=== PATIENT | female | born 1945 | race African-American/Black ===

== ENCOUNTER → 2016-10-14 | Day surgery (SDC) | payer MEDICARE, MEDICAID ==
[2016-10-14] VITALS (10 sets, daily range): BP systolic 142–155; BP diastolic 64–90
[~2016-10-14] VITALS: Ht 144.8 cm; Wt 77.1 kg
[~2016-10-14] MED LIST: ASPIR 8181 MG ORAL; ATENOLOL50 MG ORAL; Atropine Sulfate 3.5gm Oint ONE; BENAZEPRIL HCL40 MG ORAL; BEPREVE10 ML BOTH EYES; BSS 15ml BTL ONE; BSS 500ml btl ONE; Bupivacaine 0.75% 30ml vial INJ ONE; Cyclopentolate 1% Opth Sol ONE; Dexamethasone 4mg/ml vial ONE; EPINEPHrine 1mg/1ml Amp ONE; Flurbiprofen 0.03% Opth Sol 2.5ml ONE; Gatifloxacin Opth Solution 0.5% ONE; Indocyanine Green 25mg Inj INJ ONE; Kenalog-10 5ml Inj ONE; Kenalog-40 1ml Vial ONE; LEVOCETIRIZINE D5 MG ORAL; LR 1000ml 1,000 ML IVLG SCH; LR 1000ml ONE; Lidocaine 1% MPF 10mg/ml 5ml ONE; Lidocaine 2% MPF 5ml Vial INJ ONE; Maxitrol Opth Oint 3.5gm ONE; Midazolam 2mg/2ml Inj ONE; NAPROXEN250 M1 PO; NIFEDIPINE ER60 M3 ORAL; NORVASC2.5 MG ORAL; NS Irrig 1000ml ONE; Norco 5mg/325mg tab ORAL PRN; Phenylephrine 2.5% Op Soln ONE; Pred Forte 1% Opth Susp 1ml RIGHT EYE ONE; Propofol 10mg/ml 20ml IV ONE; Sodium Hyaluronate 10 mg/ml 0.85ml ONE; Sterile Water Irrig 1000ml IRRIG ONE; Tetracaine 0.5% Opth Soln ONE; XALATAN2.5 ML BOTH EYES; bp med
[2016-10-14] MEDS: Cyclopentolate 1% Opth Sol RIGHT EYE SCH ×3 (05:43→06:00)
[2016-10-14] MEDS: Gatifloxacin Opth Solution 0.5% RIGHT EYE SCH ×3 (05:43→06:00)
[2016-10-14] MEDS: Flurbiprofen 0.03% Opth Sol 2.5ml RIGHT EYE SCH ×3 (05:43→06:00)
[2016-10-14] MEDS: Phenylephrine 2.5% Op Soln RIGHT EYE SCH ×3 (05:43→06:00)
[2016-10-14 06:17] LABS: BASOPHILS % (AUTO) 0.7 % (0.0-2.0); EOSINOPHILS % (AUTO) 1.1 % (0.0-3.0); LYMPHOCYTES % (AUTO) 25.7 % (20.0-45.0); MEAN CORPUSCULAR HEMOGLOBIN 33.5 PG (27.0-31.0); MEAN CORPUSCULAR HGB CONC 31.7 G/DL (32.0-36.0); MEAN CORPUSCULAR VOLUME 106 FL (80-99); MEAN PLATELET VOLUME 5.8 FL (6.5-10.1); MONOCYTES % (AUTO) 8.6 % (1.0-10.0); PLATELET COUNT 308 K/UL (150-450); RED BLOOD COUNT 3.42 M/UL (4.20-5.40); RED CELL DISTRIBUTION WIDTH 13.2 % (11.6-14.8); WHITE BLOOD COUNT 7.8 K/UL (4.8-10.8)
--- NOTE | 2016-10-14 06:34 | Pre-Procedure Note/Attestation ---
Pre-Procedure Note/Attestation Complete Prior to Procedure Planned Procedure: right Procedure Narrative: PPV, ICG assisted membrane peel, gas-fluid exchange R eye Indications for Procedure Pre-Operative Diagnosis: Stage 4 macular hole R eye Attestation I attest that I discussed the nature of the procedure; its benefits; risks and complications; and alternatives (and the risks and benefits of such alternatives ), prior to the procedure, with the patient (or the patient's legal outside medical sales representative). I attest that, if there was a reasonable possibility of needing a blood transfusion, the patient (or the patient's legal outside medical sales representative) was given the [facility] standardized written summary, pursuant to the [place] Blood Safety Act ([place] Health and Safety Code # 1645, as amended). I attest that I re-evaluated the patient just prior to the surgery and that there has been no change in the patient's H&P, except as documented below: PARAM RODAS Oct 14, 2016 06:34
[2016-10-14 06:41] LABS: ANION GAP 17 (5-15); CALCIUM 9.1 mg/dL (8.6-10.2); CARBON DIOXIDE 21 mEQ/L (20-30); CHLORIDE 108 mEQ/L (98-107); CREATININE 0.9 mg/dL (0.5-0.9); HEMOLYSIS 46; POTASSIUM 4.3 mEQ/L (3.4-4.9); SODIUM 146 mEQ/L (135-145)
--- NOTE | 2016-10-14 08:32 | Anethesia Preoperative Eval ---
Anesthesia Pre-op PMH/ROS General Date of Evaluation: Oct 14, 2016 Time of Evaluation: 07:30 Anesthesiologist: Marianna ASA Score: ASA 2 Mallampati Score Class I : Soft palate, uvula, fauces, pillars visible Class II: Soft palate, uvula, fauces visible Class III: Soft palate, base of uvula visible Class IV: Only hard plate visible Mallampati Classification: Class II Surgeon: Travis Diagnosis: Macular hole right eye Surgical Procedure: Posterior vitrectomy Anesthesia History: none Family History: no anesthesia problems Allergies: Coded Allergies: No Known Allergies (Unverified , 10/13/16) Medications: see eMAR Past Medical History Cardiovascular: Reports: HTN Pulmonary: Denies: COPD, LUISA, asthma, other Gastrointestinal/Genitourinary: Denies: CRI, ESRD, GERD, other Neurologic/Psychiatric: Denies: CVA, TIA, dementia, depression/anxiety, other Endocrine: Denies: DM, hypothyroidism, other, steroids HEENT: Reports: cataract (R) Hematology/Immune: Denies: DVT, anemia, bleeding disorder, other Musculoskeletal/Integumentary: Denies: DDD, DJD, OA, RA, edema, other PMH Narrative: HTN PSxH Narrative: Cataract Anesthesia Pre-op Phys. Exam Physician Exam Last Vital Signs Date Time Temp Pulse Resp B/P Pulse Ox O2 Delivery O2 Flow Rate FiO2 10/14/16 05:57 98.1 74 18 151/67 97 Room Air Constitutional: NAD Neurologic: CN 2-12 intact Cardiovascular: RRR Respiratory: CTA Gastrointestinal: S/NT/ND Airway Exam Mallampati Score: Class II MO: full ROM: full Teeth: missing Dentures: no lower, no upper Anesthesia Pre-op A/P Labs Hematology Test 10/14/16 06:00 White Blood Count 7.8 K/UL (4.8-10.8) Red Blood Count 3.42 M/UL (4.20-5.40) L Hemoglobin 11.5 G/DL (12.0-16.0) L Hematocrit 36.1 % (37.0-47.0) L Mean Corpuscular Volume 106 FL (80-99) H Mean Corpuscular Hemoglobin 33.5 PG (27.0-31.0) H Mean Corpuscular Hemoglobin Concent 31.7 G/DL (32.0-36.0) L Red Cell Distribution Width 13.2 % (11.6-14.8) Platelet Count 308 K/UL (150-450) Mean Platelet Volume 5.8 FL (6.5-10.1) L Neutrophils (%) (Auto) 64.0 % (45.0-75.0) Lymphocytes (%) (Auto) 25.7 % (20.0-45.0) Monocytes (%) (Auto) 8.6 % (1.0-10.0) Eosinophils (%) (Auto) 1.1 % (0.0-3.0) Basophils (%) (Auto) 0.7 % (0.0-2.0) Chemistry Test 10/14/16 06:00 Sodium Level 146 mEQ/L (135-145) H Potassium Level 4.3 mEQ/L (3.4-4.9) Chloride Level 108 mEQ/L (98-107) H Carbon Dioxide Level 21 mEQ/L (20-30) Anion Gap 17 (5-15) H Blood Urea Nitrogen 14 mg/dL (7-23) Creatinine 0.9 mg/dL (0.5-0.9) Estimat Glomerular Filtration Rate mL/min (>60) Glucose Level 75 mg/dL (74-106) Calcium Level 9.1 mg/dL (8.6-10.2) SOTO DENIS D.O. Oct 14, 2016 08:32
--- NOTE | 2016-10-14 08:47 | Pre-op HX & Phy Repo 2 SIG ---
DATE OF ADMISSION: 10/14/2016 PRESURGICAL INTERNAL MEDICINE HISTORY AND PHYSICAL REASON FOR EVALUATION: I was asked by Dr. Kevyn Robles to see this 71-year-old female, who is going for elective surgery on the right eye. The patient has a macular hole stage IV right eye. Please see full ophthalmology History and Physical by Dr. Kevyn Robles. The patient was examined and chart was reviewed. The patient is a 71-year-old female, has a history of hypertension, history of degenerative joint disease of knee and recent weight loss. Denies history of stroke. Denies diabetes. Denies history of chest pain, palpitation or heart attack. No history of stomach problem, acid reflux, ulcer. Denies history of liver problem, hepatitis or jaundice. No history of thyroid problem. No anemia. No history of renal failure. PAST SURGICAL HISTORY: Cataract both eyes in the . ALLERGIES: Not known. PRESENT MEDICATIONS: The patient remember medication for blood pressure, nifedipine, aspirin and [place] for pain. SOCIAL HISTORY: The patient was smoker for approximately 20 years and stopped in 1989. She continue to drink alcohol. No street drugs. FAMILY HISTORY: Mother has hypertension. PHYSICAL EXAMINATION: GENERAL: Alert, awake, well-developed, well-nourished female, in her 70s. Daughter at bedside. VITAL SIGNS: Blood pressure 151/69, temperature 98.1 degrees, pulse 74 and regular, respirations 18, and O2 saturation 97% on room air. SKIN: Warm and dry. No rashes. LYMPHATICS: Lymph nodes not enlarged. HEENT: Head, normocephalic. Ears, clear. No discharge. No hearing impairment. Eyes, full description per Dr. Kevyn Robles. Nose, clear. No discharge. Mouth, dry and clear. No dentures. NECK: Supple. No jugular vein distention. Carotids are 2+. Trachea midline. CHEST: No deformity or asymmetry. LUNGS: Clear to auscultation and percussion. No rales or rhonchi. ABDOMEN: Soft. No palpable mass. No rebound. EXTREMITIES: Degenerative joint disease of knee. No edema. No varicose vein. No calf tenderness. GENITOURINARY TRACT: No dysuria. No CVA tenderness. NEUROLOGIC: No tremor. No nystagmus. PSYCHIATRY: Fully alert and oriented to time and place. LABORATORY AND DIAGNOSTIC DATA: ECG, sinus rhythm at 64 per minute, cannot rule out anterior infarct. The patient undetermined. The patient did not eat or drink from last night. Laboratory work pending. IMPRESSION: 1. Macular hole, stage IV on the right eye. 2. Hypertension, controlled. 3. Degenerative joint disease of knee. 4. Anterior myocardial infarction by EKG. 5. Recent weight loss. PLAN: Pars plana vitrectomy 23 G, membrane peel right eye per Dr. Kevyn Robles. CONCLUSION: The patient 71-year-old female with history of hypertension. Vital signs stable. The patient did not eat or drink from last night. ECG show possible anterior DC, normal sinus rhythm. The patient denies symptomatic event, the patient's weight loss recently and need to be evaluated by primary physician. The patient's condition optimized for surgery. Thank you very much, Dr. Robles, for privilege to participate in presurgical care of this interesting patient. Elieser Shields M.D. DR: Dea JOB#: [id number] CC:
--- NOTE | 2016-10-14 08:58 | Immediate Post-Op Evaluation ---
Immediate Post-Op Evalulation Immediate Post-Op Evalulation Procedure: Vitrectomy, gas exchange, membrane peeling Date of Evaluation: Oct 14, 2016 Time of Evaluation: 08:58 IV Fluids: 500ml Blood Products: none Estimated Blood Loss: none Urinary Output: due to void Blood Pressure Systolic: 150 Blood Pressure Diastolic: 70 Pulse Rate: 86 Respiratory Rate: 16 O2 Sat by Pulse Oximetry: 100 Temperature (Fahrenheit): 99.7 Pain Score (1-10): 0 Nausea: No Vomiting: No Complications none Patient Status: awake, reacts Hydration Status: adequate Drug: n/a SOTO DENIS D.O. Oct 14, 2016 08:58
--- NOTE | 2016-10-14 09:08 | Brief Operative Note ---
Immediate Post Operative Note Operative Note Chief Complaint: Blurred vision R eye Pre-op Diagnosis: Stage 4 macular hole R eye Procedure: PPV, ICG assisted membrane peel, endolaser 411 spots, gas-fluid exchange 24% SF6 L eye Post-op Diagnosis: same as pre-op plus - Multiple round holes superotemporally Surgeon: cordelia Crop Farmers: lisandra Anesthesia: MAC Specimen: none Complications: none Condition: stable Estimated Blood Loss: none Drains: none Implant(s) used?: No PARAM RODAS Oct 14, 2016 09:08
--- NOTE | 2016-10-14 09:10 | 48 Hour Post Anesthesia Eval ---
Post Anesthesia Evaluation Procedure: Vitrectomy, gas exchange, membrane peeling Date of Evaluation: Oct 14, 2016 Time of Evaluation: 09:09 Blood Pressure Systolic: 155 0: 70 Pulse Rate: 16 Respiratory Rate: 16 Temperature (Fahrenheit): 99.7 O2 Sat by Pulse Oximetry: 100 Nausea: No Vomiting: No Pain Intensity: 0 Hydration Status: adequate Cardiopulmonary Status: stable Mental Status/LOC: patient returned to baseline Follow-up Care/Observations: as per surgeon Post-Anesthesia Complications: none Follow-up care needed: N/A SOTO DENIS D.O. Oct 14, 2016 09:10
--- NOTE | 2016-10-14 10:08 | Operative Note - Dictated ---
DATE OF OPERATION: 10/14/2016 PREOPERATIVE DIAGNOSIS: Stage IV macular hole, right eye. POSTOPERATIVE DIAGNOSIS: Stage IV macular hole, right eye with multiple peripheral round hole. SURGEON: Kevyn Robles M.D. [employer] ARTILLERY CREWMEMBER: Bruce Hernández M.D. PROCEDURES PERFORMED: 1. Pars plana vitrectomy. 2. ICG assisted membrane peel. 3. Endolaser. 4. Gas fluid exchange, right eye. ANESTHESIOLOGIST: Dr. Cabral. ANESTHESIA: Local with sedation. JUSTIFICATION FOR SURGERY: This is a 71-year-old lady developed poor central vision in the right eye and was found to have a stage IV hole. BRIEF NOTE: The patient brought to the operative room, placed on operating room table in supine position. After a time-out was performed and agreed upon by the staff and initial monitoring secured by Dr. Cabral. Retrobulbar and Van Lint blocks given in standard way. The blocks taken effect, she was prepped and draped in normal manner. The lid speculum was inserted into the right eye. Using a 23-gauge trocar system, cannulas were placed all except infranasal quadrant. Infusion secured inferotemporally. Vitrectomy was begun posterior to the lens implant. The capsulotomy was slightly enlarged and vitreous adhesions removed from capsule and anterior hilar. Vitrectomy was carried further posteriorly with the posterior hyaloid was noted to be elevated. This was removed. Vitrectomy was carried further peripherally leaving a small vitreous skirt. ICG, diluted and D5 was placed over the posterior segment avoiding the central macular hole. A total of roughly 2 drops were placed and allowed to stain in the hilum. Using intra-ocular forceps, the hilum was engaged superior and nasal to the macula. The forceps were used to gently peel an area 2.5 disc diameters in size freeing adhesions to the central hole. No problems were encountered. Slow depression was done and an area of pigmentation and at least 2 to 3 round holes was noted superotemporally. The endolaser was brought into the eye and a power of 0.3 mitchell duration 0.2 seconds, total for 411 lesions were applied to completely surround this area treating the visible holes. An air-fluid exchange was then performed followed by a gas exchange to 24% SF6. The eye was left normotensive as the cannulas were removed. The shelved nature of the incisions were noted to be self-sealing. Subconjunctival Decadron and gentamicin were injected inferiorly and Maxitrol and atropine ointments were instilled. The eye was patched and shielded. The patient taken to recovery in excellent condition. No complications were encountered. Kevyn Robles M.D. DR: Ty JOB#: [id number] CC: Kevyn Robles M.D.; Fax#: [phone] Hernández M.D.; On staff at [facility], the assitant surgeon CHRISTY
--- NOTE | 2016-10-19 12:41 | Cardiology Report ---
APPROVED REPORT EKG Measurement Heart [id number] IN [id number] Normal sinus rhythm Cannot rule out Anterior infarct, age undetermined Abnormal ECG
--- NOTE | 2016-11-04 08:48 | Pre-op HX & Phy Repo 2 SIG ---
DATE OF SURGERY: 10/14/2016 PREOPERATIVE DIAGNOSIS: Stage IV macular hole, right eye. BRIEF NOTE: This is a first [place] admission for the patient, who is a very nice 71-year-old lady, who complained of blurred vision in the right eye for at least a month. On examination, she was found to have a stage IV macular hole. Her past ocular history is remarkable for cataract surgery done in both eyes in 1998. These were successful. PAST MEDICAL HISTORY: Remarkable for arthritis and high blood pressure. MEDICATIONS: She is on atenolol, benazepril, levocetirizine, and Naprosyn as well as aspirin 325 mg daily. ALLERGIES: She has no known allergies. SOCIAL HISTORY: She does not smoke or drink. PHYSICAL EXAMINATION: EYE: Best vision at the time of admission was 20, was counting fingers at 6 feet in the right eye, 20/50- in the left with pressures of 14. The anterior segments have posterior chamber lenses in either eye. Funduscopic examination revealed a stage IV macular hole in the right eye with mild pigmentary mottling. The left eye showed mild pigmentary changes, but no hole. There were vitreous floaters in either eye. The diagnosis was confirmed with fluorescein angiography and a full CT study, which revealed no evidence of neovascular activity. ASSESSMENT: Stage IV macular hole, right eye. PLAN: The plan is to perform a pars plana vitrectomy with ICG assisted membrane peel, possible endolaser and the gas fluid exchange on the right eye. The risks and benefits of surgery was gone over the patient with potential infection, hemorrhage, glaucoma, and remote possibility of loss of the eye. The risk of anesthesia was discussed. The patient understands and consents to surgery, which will be performed on tomorrow morning. Kevyn Robles M.D. DR: CRIS JOB#: [id number] CC:
== END | disposition home or self-care (01) ==
LOC: SUR 05:18
DX: H35.341 Macular cyst, hole, or pseudohole, right eye (principal); I10 Essential (primary) hypertension; M17.0 Bilateral primary osteoarthritis of knee; R63.4 Abnormal weight loss; I25.2 Old myocardial infarction; Z87.891 Personal history of nicotine dependence; Z79.82 Long term (current) use of aspirin; Z79.891 Long term (current) use of opiate analgesic
CPT/HCPCS: 36415; 67042; 80048; 85025; 93005; J0171; J1100; J2250; J2704; J3490; J7120; 94003; 94150

== ENCOUNTER → 2016-12-23 | Day surgery (SDC) | payer MEDICARE, MEDICAID ==
--- NOTE | 2016-12-18 15:58 | Pre-op HX & Phy Repo 2 SIG ---
DATE OF ADMISSION: 12/23/2016 DATE OF SURGERY: 12/23/2016. PREOPERATIVE DIAGNOSIS: Recurrent macular hole, right eye. BRIEF NOTE: This is the second [place] admission for this patient, who is a very nice 71-year-old lady who developed a macular hole in the right eye. PAST OCULAR HISTORY: Remarkable for surgery on the same macular hole two and half months ago. She initially showed closure, but the hole reopened. She is admitted for a second procedure with possible ILM flap. PAST MEDICAL HISTORY: Remarkable for arthritis and hypertension. MEDICATIONS: She is currently on ophthalmic solution as well as latanoprost. Oral medications include aspirin, Voltaren, atenolol, benazepril, and levocetirizine. ALLERGIES: She has no allergies. SOCIAL HISTORY: She does not smoke or drink. PHYSICAL EXAMINATION: EYES: Best vision time of the visit was counting fingers at 4 feet in the right eye and 20/40 in the left with pressures of 28 and 22. The anterior segments showed posterior chamber lenses in either eye. She was otherwise quiet. Fundus exam of the right eye showed an open full thickness macular hole, stage IV. There was a closed peripheral retinal tear at the 2 o'clock position. The left fundus showed retinal pigment epithelial mottling, but no evidence of a hole. General physical examination will be updated by Dr. Shields. ASSESSMENT: Recurrent macular hole, right eye. PLAN: The plan is to perform a pars plana vitrectomy with removal of any residual internal limiting membrane, possible internal limiting membrane flap formation with gas fluid exchange. The risks and benefits of surgery have been gone over with the patient including the potential for detachment, failure of the hole to close on the second attempt, and remote possibility of loss of the eye. The risk of anesthesia was discussed. The patient understands and consents with the surgery to be performed on Wednesday. Kevyn Robles M.D. DR: TONYA JOB#: [id number] CC:
[2016-12-23] VITALS (9 sets, daily range): BP systolic 139–170; BP diastolic 65–80
[~2016-12-23] VITALS: Ht 142.2 cm; Wt 53.5 kg
[~2016-12-23] MED LIST changes: +AVASTIN IVITRE ONE; -Atropine Sulfate 3.5gm Oint ONE; +LR 1000ml 1,000 ML IV SCH; -LR 1000ml ONE; -Lidocaine 1% MPF 10mg/ml 5ml ONE; +Povidone-Iodine 5% opth solution ONE; -Pred Forte 1% Opth Susp 1ml RIGHT EYE ONE; +Pred Forte 1% Opth Susp 1ml RIGHT EYE SCH; +fentaNYL 100 mcg/2 mL IV PRN
[2016-12-23] MEDS: Cyclopentolate 1% Opth Sol RIGHT EYE SCH ×3 (06:26→06:46)
[2016-12-23] MEDS: Flurbiprofen 0.03% Opth Sol 2.5ml RIGHT EYE SCH ×3 (06:26→06:47)
[2016-12-23] MEDS: Phenylephrine 2.5% Op Soln RIGHT EYE SCH ×3 (06:26→06:47)
[2016-12-23] MEDS: Gatifloxacin Opth Solution 0.5% RIGHT EYE SCH ×3 (06:27→06:48)
[2016-12-23 06:51] LABS: BASOPHILS % (AUTO) 0.6 % (0.0-2.0); LYMPHOCYTES % (AUTO) 23.3 % (20.0-45.0); MEAN CORPUSCULAR HEMOGLOBIN 33.9 PG (27.0-31.0); MEAN CORPUSCULAR HGB CONC 33.2 G/DL (32.0-36.0); MEAN CORPUSCULAR VOLUME 102 FL (80-99); MEAN PLATELET VOLUME 6.6 FL (6.5-10.1); MONOCYTES % (AUTO) 7.7 % (1.0-10.0); NEUTROPHILS % (AUTO) 67.4 % (45.0-75.0); PLATELET COUNT 323 K/UL (150-450); RED BLOOD COUNT 3.67 M/UL (4.20-5.40); RED CELL DISTRIBUTION WIDTH 13.8 % (11.6-14.8); WHITE BLOOD COUNT 7.9 K/UL (4.8-10.8)
[2016-12-23 06:54] LABS: ANION GAP 16 (5-15); CALCIUM 9.2 mg/dL (8.6-10.2); CARBON DIOXIDE 27 mEQ/L (20-30); CHLORIDE 97 mEQ/L (98-107); CREATININE 0.9 mg/dL (0.5-0.9); HEMOLYSIS 171; POTASSIUM 4.3 mEQ/L (3.4-4.9); SODIUM 140 mEQ/L (135-145)
--- NOTE | 2016-12-23 07:31 | Pre-Procedure Note/Attestation ---
Pre-Procedure Note/Attestation Complete Prior to Procedure Planned Procedure: right Procedure Narrative: PPV, ICG assisted membrane peel, gas fluid exchange R eye Indications for Procedure Pre-Operative Diagnosis: Recurrent macular hole R eye Attestation I attest that I discussed the nature of the procedure; its benefits; risks and complications; and alternatives (and the risks and benefits of such alternatives ), prior to the procedure, with the patient (or the patient's legal herbicide service sales representative). I attest that, if there was a reasonable possibility of needing a blood transfusion, the patient (or the patient's legal herbicide service sales representative) was given the [facility] Services standardized written summary, pursuant to the [place] Blood Safety Act ([place] Health and Safety Code # 1645, as amended). I attest that I re-evaluated the patient just prior to the surgery and that there has been no change in the patient's H&P, except as documented below: PARAM RODAS Dec 23, 2016 07:31
--- NOTE | 2016-12-23 08:13 | Anethesia Preoperative Eval ---
Anesthesia Pre-op PMH/ROS General Date of Evaluation: Dec 23, 2016 Time of Evaluation: 07:30 Anesthesiologist: Matias ASA Score: ASA 3 Mallampati Score Class I : Soft palate, uvula, fauces, pillars visible Class II: Soft palate, uvula, fauces visible Class III: Soft palate, base of uvula visible Class IV: Only hard plate visible Mallampati Classification: Class II Surgeon: Travis Diagnosis: Macular hole Surgical Procedure: Vitrectomy, membrane peeling Family History: no anesthesia problems Allergies: Coded Allergies: No Known Allergies (Unverified , 10/13/16) Past Medical History Cardiovascular: Reports: HTN, Denies: CAD, VT, arrhythmia, other, valve dz Pulmonary: Denies: COPD, LUISA, asthma, other Gastrointestinal/Genitourinary: Denies: CRI, ESRD, GERD, other Neurologic/Psychiatric: Reports: CVA, Denies: TIA, dementia, depression/anxiety, other Endocrine: Denies: DM, hypothyroidism, other, steroids HEENT: Denies: [place] (L), [place] (R), cataract (L), cataract (R), glaucoma, other Hematology/Immune: Denies: DVT, anemia, bleeding disorder, other Musculoskeletal/Integumentary: Denies: DDD, DJD, OA, RA, edema, other PMH Narrative: HTN, CVA without residual PSxH Narrative: Vitrectomy right eye Anesthesia Pre-op Phys. Exam Physician Exam Last Vital Signs Date Time Temp Pulse Resp B/P Pulse Ox O2 Delivery O2 Flow Rate FiO2 12/23/16 06:39 98.2 78 20 146/74 100 Room Air Constitutional: NAD Neurologic: CN 2-12 intact Cardiovascular: RRR, no M/R/G Respiratory: CTA Gastrointestinal: S/NT/ND Airway Exam Mallampati Score: Class II MO: full ROM: full Teeth: intact Anesthesia Pre-op A/P Labs Hematology Test 12/23/16 06:30 White Blood Count 7.9 K/UL (4.8-10.8) Red Blood Count 3.67 M/UL (4.20-5.40) L Hemoglobin 12.4 G/DL (12.0-16.0) Hematocrit 37.5 % (37.0-47.0) Mean Corpuscular Volume 102 FL (80-99) H Mean Corpuscular Hemoglobin 33.9 PG (27.0-31.0) H Mean Corpuscular Hemoglobin Concent 33.2 G/DL (32.0-36.0) Red Cell Distribution Width 13.8 % (11.6-14.8) Platelet Count 323 K/UL (150-450) Mean Platelet Volume 6.6 FL (6.5-10.1) Neutrophils (%) (Auto) 67.4 % (45.0-75.0) Lymphocytes (%) (Auto) 23.3 % (20.0-45.0) Monocytes (%) (Auto) 7.7 % (1.0-10.0) Eosinophils (%) (Auto) 1.0 % (0.0-3.0) Basophils (%) (Auto) 0.6 % (0.0-2.0) Chemistry Test 12/23/16 06:30 Sodium Level 140 mEQ/L (135-145) Potassium Level 4.3 mEQ/L (3.4-4.9) Chloride Level 97 mEQ/L (98-107) L Carbon Dioxide Level 27 mEQ/L (20-30) Anion Gap 16 (5-15) H Blood Urea Nitrogen 11 mg/dL (7-23) Creatinine 0.9 mg/dL (0.5-0.9) Estimat Glomerular Filtration Rate mL/min (>60) Glucose Level 96 mg/dL (74-106) Calcium Level 9.2 mg/dL (8.6-10.2) Studies Pre-op Studies: EKG - SR, NSTW changes Risk Assessment & Plan Assessment: Macular hole Plan: MAC Status Change Before Surgery: No Pre-Antibiotics Drug: None LUCIO TODD M.D. Dec 23, 2016 08:13
--- NOTE | 2016-12-23 08:14 | Immediate Post-Op Evaluation ---
Immediate Post-Op Evalulation Immediate Post-Op Evalulation Procedure: Vitrectomy, membrane peeling Date of Evaluation: Dec 23, 2016 Time of Evaluation: 08:38 IV Fluids: 400 Blood Pressure Systolic: 142 Blood Pressure Diastolic: 79 Pulse Rate: 79 Respiratory Rate: 20 O2 Sat by Pulse Oximetry: 100 Temperature (Fahrenheit): 98.1 Pain Score (1-10): 0 Nausea: No Vomiting: No Complications No complication Patient Status: awake, patent, none Hydration Status: adequate Drug: None LUCIO TODD M.D. Dec 23, 2016 08:14
--- NOTE | 2016-12-23 08:34 | Brief Operative Note ---
Immediate Post Operative Note Operative Note Chief Complaint: Blurred central vision R eye Pre-op Diagnosis: Recurrent macular hole R eye Procedure: PPV, membrane peel with ICG, gas-fluid exchange (15% C3F8) OD Post-op Diagnosis: same as pre-op Surgeon: cordelia Science Consultant: lisandra Anesthesiologist: Juan Anesthesia: MAC Specimen: none Complications: none Condition: stable Estimated Blood Loss: none Drains: none Implant(s) used?: No PARAM RODAS Dec 23, 2016 08:34
--- NOTE | 2016-12-23 08:37 | 48 Hour Post Anesthesia Eval ---
Post Anesthesia Evaluation Procedure: Vitrectomy, membrane peeling Date of Evaluation: Dec 23, 2016 Time of Evaluation: 09:15 Blood Pressure Systolic: 151 0: 78 Pulse Rate: 80 Respiratory Rate: 19 O2 Sat by Pulse Oximetry: 100 Airway: patent Nausea: No Vomiting: No Pain Intensity: 0 Hydration Status: adequate Cardiopulmonary Status: Stable Mental Status/LOC: patient returned to baseline Follow-up Care/Observations: As per surgery Post-Anesthesia Complications: No anesthetic complication Follow-up care needed: N/A LUCIO TODD M.D. Dec 23, 2016 08:37
--- NOTE | 2016-12-23 17:00 | Operative Note - Dictated ---
DATE OF OPERATION: 12/23/2016 PREOPERATIVE DIAGNOSIS: Recurrent macular hole, right eye. POSTOPERATIVE DIAGNOSIS: Recurrent macular hole, right eye. PROCEDURES: 1. Pars plana vitrectomy. 2. ICG-assisted membrane peel. 3. Gas fluid exchange, right eye. SURGEON: Kevyn Robles M.D. REGISTERED MEDICAL TRANSCRIPTIONIST: Bruce Hernández M.D. ANESTHESIOLOGIST: Tello Salcedo M.D. ANESTHESIA: Local sedation. JUSTIFICATION FOR SURGERY: This is a 71-year-old female, who underwent macular hole surgery 2 months ago, noted either failure to close or recurrence of the opening. She was admitted for repeat vitrectomy and gas. BRIEF NOTE: The patient was brought to the operative room, placed on operating room table in supine position. After time-out was performed and agreed upon by the staff, initial monitoring was secured by Dr. Paul's. Retrobulbar and Van Lint blocks were given in the standard way. When the blocks had taken effect, she was prepped and draped in normal manner. A lid speculum was inserted into the right eye. Using a 23-gauge trocar system, cannulae were placed in all except infranasal quadrant. Infusion secured inferotemporally. Vitrectomy was begun posterior to the lens. A minimal peripheral vitrectomy was completed leaving the vitreous skirt smaller. The bulk of the vitreous had been previously removed. A posterior viewing lens was inserted and the hole was noted. A single drop of ICG dye was applied and gently evacuated from the eye. The gentle staining showed a fairly complete 3 disc diameter opening around the hole including ILM. There were possible faint areas of preretinal membrane present and using a [employer] epitaxial reactor technician, the hole was brushed centrally decreasing its size by about 50% and loosening in the adhesions. At this juncture, an air-fluid exchange was performed followed by gas-gas exchange of 15% C3F8. The cannulae were removed from the eye and the wound was noted to be self-sealing. Subconjunctival Decadron and gentamicin were injected inferiorly and Maxitrol and atropine ointments were instilled. The eye was patched and shielded. The patient taken to recovery in excellent condition. There were no complications. Kevyn Robles M.D. DR: Jaciel JOB#: [id number] CC: Juan Alberto Sharma M.D. ; Fax#: [phone]
--- NOTE | 2016-12-23 17:18 | Pre-op HX & Phy Repo 2 SIG ---
DATE OF ADMISSION: 12/23/2016 NOTE: POOR AUDIO QUALITY PRESURGICAL INTERNAL MEDICINE HISTORY AND PHYSICAL: REASON FOR EVALUATION: I was asked by Dr. Kevyn Robles to see this 70-year-old female, who is going for elective surgery in the right eye. The patient was evaluated. Chart was reviewed. The patient has a macular hole, right eye. Please see full ophthalmology history and physical by Dr. Kevyn Robles. Part of information obtained from the daughter at the bedside. 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 No paralysis. Denies history of diabetes. No history of chest pain, palpitation, or shortness of breath. No arrhythmia. Denies history of GI problem, bleeding, or constipation. No liver problem. Denies history of thyroid problem. No history of renal failure. No respiratory problem. The patient does have a history of degenerative joint disease of the knee. She ambulates with walker, lives alone. PAST SURGICAL HISTORY: Eye surgery approximately 5 months ago at [place]. FAMILY HISTORY: Both parents had hypertension. ALLERGIES: Not known. MEDICATIONS: Current medications include nifedipine XL 90 mg daily, 5 mg, naproxen, benazepril 40 mg, atenolol, and baby aspirin 81 mg daily. SOCIAL HISTORY: Smoker for approximately 25 years, stopped [address]. PHYSICAL EXAMINATION: GENERAL: Alert well-developed, well-nourished female in her 70s, no acute distress. VITAL SIGNS: Blood pressure 146/74, temperature 98.4, pulse 70 and regular, respirations 20, and O2 saturation 100% on room air. SKIN: Clear and warm. No rashes. No ulcers. LYMPHATICS: Lymph nodes not enlarged. HEENT: Head normocephalic and atraumatic. Ears, clear. No discharge. Mouth, clear and moist. No dentures. Tongue midline. Eyes full description per Dr. Kevyn Robles. NECK: Supple. No jugular distention. Carotids artery +2. Trachea midline. CHEST: No deformity or asymmetry. LUNGS: No rales or rhonchi. HEART: Sinus rhythm. No ectopy. No murmur. No S3 or S4. ABDOMEN: Soft, benign. No palpable mass. No rebound. Liver and spleen not enlarged. EXTREMITIES: No edema. Degenerative joint disease of knee. No calf tenderness. GENITOURINARY: No dysuria. No CVA tenderness. NERVOUS SYSTEM: No asymmetry. No tremor. LABORATORY AND DIAGNOSTIC DATA: Electrocardiogram shows sinus rhythm 79 per minute, nonspecific ST abnormalities, prolonged QT interval. Laboratory work pending. The patient did not eat or drink from 7 p.m. yesterday. The patient took two blood pressure medications this morning as stated before, . IMPRESSION: 1. Macular hole, right eye. 2. Hypertension, controlled. 3. Degenerative joint disease in the knee. 4. History of transient ischemic attack. PLAN: Pars plana vitrectomy, 23 G membrane peeling right eye per Dr. Kevyn Robles. CONCLUSION: The patient's vital signs stable. ECG showed nonspecific ST changes. The patient is asymptomatic. She did not eat or drink from last night. The patient's condition optimized for surgery. Thank very much, Dr. Kevyn Robles, for privilege to participate presurgical care of this interesting patient. Elieser Shields M.D. DR: Jeremy JOB#: [id number] CC:
--- NOTE | 2016-12-25 21:19 | Cardiology Report ---
APPROVED REPORT EKG Measurement Heart [id number] Normal sinus rhythm Nonspecific ST abnormality Prolonged QT Abnormal ECG
== END | disposition home or self-care (01) ==
LOC: SUR 06:00
DX: H35.341 Macular cyst, hole, or pseudohole, right eye (principal); I10 Essential (primary) hypertension; M17.9 Osteoarthritis of knee, unspecified; Z86.73 Personal history of transient ischemic attack (TIA), and cerebral infarction without residual deficits; Z87.891 Personal history of nicotine dependence; Z79.82 Long term (current) use of aspirin
CPT/HCPCS: 36415; 67042; 80048; 85025; 93005; J0171; J1100; J2250; J2704; J3301; J3470; J3490; 94003; 94150; J9035